=== PATIENT | female | born 1955 | race Caucasian/White ===

== ENCOUNTER → 2017-01-24 | Outpatient (CLI) | payer BC ==
--- NOTE | 2017-01-24 16:08 | REPMRS ---
Patient History The patient states she had a clinical breast exam in 03/26 Family history of prostate cancer in paternal grandfather at age 50 or over and breast cancer in paternal cousin at age 73. Took hormonal contraceptives for 13 years. Digital Woman Screen Mammo: January 24, 2017 - Exam #: [id number] Bilateral CC and MLO view(s) were taken. Technologist: Iris Goncalves, Technologist Prior study comparison: January 05, 2016, digital woman screen mammo performed at [facility]. December 31, 2014, digital woman screen mammo performed at [facility]. September 07, 2013, bilateral bilat screen digital mammo, performed at [facility] ([facility] FINDINGS: The breast tissue is heterogeneously dense. This may lower the sensitivity of mammography. There is a moderate amount of heterogeneously dense fibroglandular tissue which is fairly symmetric. There is no interval development of dominant mass, architectural distortion, or clustered microcalcification typical of malignancy. There has been no change in the appearance of the mammogram from the prior studies. ASSESSMENT: BI-RADS/ACR category 1 mammogram. Negative. Recommendation Routine screening mammogram of both breasts in 1 year (for women over age 40). This mammogram was interpreted with the aid of an FDA-approved computer-aided dectection system. Electronically Signed By: Giancarlo Wallace MD 01/24/17 [id number]
--- NOTE | 2017-01-30 10:17 | DEXA ---
AP SPINE L1 - L4 1.125 -0.6 0.8 LT FEMUR TOTAL 0.849 -1.3 -0.2 RT FEMUR TOTAL 0.839 -1.3 -0.3 TOTAL BODY TOTAL OTHER DUAL FEMUR FRAX* ASSESSMENT Risk factors: None. 10 year probability of fracture Major osteoporotic fracture 9.2 % Hip fracture 1.1 % COMMENTS: Normal bone densitometry of the spine. There is low bone density of the hips. The decreased density of the spine does not represent a significant change. The decreased density of the left hip does represent a significant change. The decreased density of the right hip does represent a significant change. The density of the spine has decreased 2.6% since the initial exam on 2005. The spine density has decreased 1.0% since the most recent exam on 08/03/2008. The density of the left hip has decreased 10.4% since the initial exam on 2005. The density of the left hip has decreased 6.2% since the most recent exam on . The density of the right hip has decreased 10.6% since the initial exam on 04/02. The density of the right hip has decreased 6.6% since the most recent exam on . FOLLOW-UP: Recommendation for the next bone density exam: 2 years. SHAHRAM
== END ==
LOC: M WHC 12:59
PROVIDERS: ATTEND Family Medicine
DX: Z12.31 Encounter for screening mammogram for malignant neoplasm of breast (principal); M89.9 Disorder of bone, unspecified; Z92.0 Personal history of contraception
CPT/HCPCS: 77080; G0202

== ENCOUNTER 2018-01-22 09:37 | Day surgery (SDC) | payer BC ==
[2018-01-22] MEDS: NS 1,000 ML IV (11:51)
[2018-01-22] MEDS ORDERED: D5W/0.45% SODIUM CHLORIDE 1,000 ML IV (12:15)
[2018-01-22 13:20] LABS: BEDSIDE GLUCOSE 77 MG/DL (80-115)
[2018-01-22] MEDS ORDERED: PROPOFOL 200 MG/20 ML VIAL As Ordered (13:31)
[2018-01-22] MEDS ORDERED: LIDOCAINE 2% INJ 100 MG/5 ML SDV (FOR ANES.) As Ordered (13:31)
[2018-01-22 14:18] LABS: BEDSIDE GLUCOSE 221 MG/DL (80-115)
== END 2018-01-22 14:16 | disposition home or self-care (01) ==
LOC: M OPP 09:37
DX: Z12.11 Encounter for screening for malignant neoplasm of colon (principal); K51.00 Ulcerative (chronic) pancolitis without complications; K64.0 First degree hemorrhoids; R12 Heartburn; K22.8 Other specified diseases of esophagus; K44.9 Diaphragmatic hernia without obstruction or gangrene; K21.9 Gastro-esophageal reflux disease without esophagitis; M19.90 Unspecified osteoarthritis, unspecified site; Z98.1 Arthrodesis status; E10.9 Type 1 diabetes mellitus without complications; Z88.0 Allergy status to penicillin; Z79.82 Long term (current) use of aspirin; Z79.899 Other long term (current) drug therapy; Z80.1 Family history of malignant neoplasm of trachea, bronchus and lung
CPT/HCPCS: 45380

== ENCOUNTER → 2018-05-30 | Outpatient (CLI) | payer BC | LOC: M WHC 08:29 | DX: Z12.31 Encounter for screening mammogram for malignant neoplasm of breast (principal) | CPT/HCPCS: 77067 ==

== ENCOUNTER → 2019-12-21 | Outpatient (CLI) | payer BC ==
[~2019-12-21] MED LIST: ASAC800T3 PO; ASPI81TA85 PO; BASA100I SC; CALC1TAB30 PO; INVO300T PO; METF10004 PO; RABE1TAB PO; VITA100087 PO; VITA400C35 PO; VITA500T PO; VITATAB11 PO
== END ==
LOC: M WHC 10:26
PROVIDERS: ATTEND Family Medicine
DX: M89.9 Disorder of bone, unspecified (principal)

== ENCOUNTER → 2021-11-24 | Outpatient (CLI) | payer BC ==
[~2021-11-24] MED LIST changes: +A-10CAP2 PO; +ASPI81TA26 PO; -ASPI81TA85 PO; +ASPI81TA86 PO; +BIOT1CAP2 PO; -RABE1TAB PO; +RABE1TAB4 PO; +ROSU10TA6 PO; +VITA-243 PO; +VITA-245 PO; +VITA-55 PO; -VITA500T PO; +VITATAB73 PO
== END ==
LOC: M LABSMTC 10:14
PROVIDERS: ATTEND Anesthesiology
DX: Z01.812 Encounter for preprocedural laboratory examination (principal); Z20.822 Contact with and (suspected) exposure to COVID-19

== ENCOUNTER → 2022-01-25 | Outpatient (CLI) | payer MEDICARE, BC | LOC: M LABSMTC 09:08 | PROVIDERS: ATTEND Ophthalmology | DX: Z03.818 Encounter for observation for suspected exposure to other biological agents ruled out (principal) ==

== ENCOUNTER → 2022-07-12 | Outpatient (CLI) | payer MEDICARE, BC | LOC: M LABSMTC 09:14 | PROVIDERS: ATTEND Ophthalmology | DX: Z11.52 Encounter for screening for COVID-19 (principal) ==